=== PATIENT | female | born 1980 | race Two or more races ===

== ENCOUNTER 2020-08-28 07:38 | Day surgery (SDC) | payer OTHER ==
[2020-08-28] MEDS ORDERED: CODE1TAB37 PO (13:58)
== END 2020-08-28 16:45 | disposition home or self-care (01) ==
LOC: CIR.AMB 07:38
PROVIDERS: ATTEND Obstetrics & Gynecology
DX: Z30.2 Encounter for sterilization (principal); Z20.822 Contact with and (suspected) exposure to COVID-19

== ENCOUNTER 2023-02-11 07:23 | Outpatient (CLI) | payer OTHER ==
[~2023-02-11 07:23] MED LIST: CODE1TAB37 PO
== END 2023-02-11 07:36 | disposition home or self-care (01) ==
LOC: MRI 07:23
PROVIDERS: ATTEND Obstetrics & Gynecology
DX: D25.1 Intramural leiomyoma of uterus (principal); R10.2 Pelvic and perineal pain
CPT/HCPCS: 72197

== ENCOUNTER 2023-02-15 09:01 | Inpatient (IN) | payer OTHER ==
[~2023-02-15] VITALS: Ht 160 cm; Wt 67.1 kg
[~2023-02-15 09:01] MED LIST changes: +FLAGYL375 MG PO
[2023-02-15 09:40] LABS: URINE APPEARANCE Cloudy; URINE BILIRRUBIN Negative (NEGATIVE); URINE BLOOD Negative; URINE COLOR Yellow; URINE GLUCOSE Negative (NEGATIVE); URINE LEUKOCYTE Negative; URINE NITRATE Negative; URINE PROTEIN Negative (NEGATIVE); URINE UROBILINOGEN 0.2 E.U./dl
[2023-02-15 09:44] LABS: URINE BACTERIA 2313.2 uL (0.0-1933); URINE EPITHELIAL CELLS 122.1 uL (0.0-38.8); URINE RBC 3.4 uL (0.0-20.8); URINE WBC 8.9 uL (0.0-23.2)
[2023-02-15 10:18] LABS: INR 1.02; PARTIAL THROMBOPLASTIN TIME 27.3 SECONDS (22.0-34.0); PROTHROMBIN TIME 10.7 SECONDS (9.0-11.5)
[2023-02-17 22:05] LABS: HEMATOCRIT 35.6 % (36.0-45.00); HEMOGLOBIN 11.8 g/dL (12.0-15.00); MEAN CELL VOLUME 83.3 fL (80.00-100.00); MEAN CORPUSCULAR HEMOGLOBIN 27.7 pg (27.00-32.0); MEAN CORPUSCULAR HGB CONC 33.3 g/dl (32.0-36.0); PLATELET COUNT 327 K/uL (150-450); RED BLOOD COUNT 4.28 M/uL (4.00-6.00); RED CELL DISTRIBUTION WIDTH 13.5 % (11.5-14.5)
[2023-02-20] MEDS ORDERED: COLACE100 MG PO (14:29)
[2023-02-20] MEDS ORDERED: TRAMADOL HCL50 MG PO (14:29)
== END 2023-02-20 15:10 | disposition home or self-care (01) | DRG 743 ==
LOC: OB/GYN 02-17 05:30 → O/R 02-17 05:30 → SURG 02-17 07:52 → OB/GYN 02-17 14:06
PROVIDERS: ADMIT Obstetrics & Gynecology; ATTEND Obstetrics & Gynecology
PROC: 0UT70ZZ Resection of Bilateral Fallopian Tubes, Open Approach (ICD-10-PCS; 2023-02-17)
PROC: 0TJB8ZZ Inspection of Bladder, Via Natural or Artificial Opening Endoscopic (ICD-10-PCS; 2023-02-17)
PROC: 0UT90ZZ Resection of Uterus, Open Approach (ICD-10-PCS; principal; 2023-02-17 11:00)
DX: D25.1 Intramural leiomyoma of uterus (principal); N84.1 Polyp of cervix uteri; Z20.822 Contact with and (suspected) exposure to COVID-19; N81.11 Cystocele, midline